=== PATIENT | female | born 2000 | race Caucasian/White ===

== ENCOUNTER 2023-11-04 03:04 | Emergency (ER) | payer MEDICAID ==
[~2023-11-04] VITALS: Ht 154.9 cm; Wt 59.0 kg
[2023-11-04 03:23] VITALS: O2SAT 98
[2023-11-04] MEDS ORDERED: TOPUD PO (05:41)
[2023-11-04] MEDS: ACETAMINOPHEN 325MG TABLET PO ONE (05:45)
[2023-11-04 06:14] VITALS: BP 116/81; PULSE 82; RESP 16; TEMP 98.1
[2023-11-05] MEDS ORDERED: AMOX1TAB16 MT (02:10)
== END 2023-11-04 06:15 | disposition home or self-care (01) ==
LOC: ER 03:04
DX: S91.209A Unspecified open wound of unspecified toe(s) with damage to nail, initial encounter (principal); W22.8XXA Striking against or struck by other objects, initial encounter; Y93.89 Activity, other specified; Y92.89 Other specified places as the place of occurrence of the external cause; Y99.8 Other external cause status
CPT/HCPCS: 73620; 99283

== ENCOUNTER 2023-11-05 01:04 | Emergency (ER) | payer MEDICAID ==
[~2023-11-05] VITALS: Ht 154.9 cm; Wt 59.0 kg
[~2023-11-05 01:04] MED LIST: TOPUD PO
[2023-11-05 01:18] VITALS: O2SAT 98
[2023-11-05] MEDS ORDERED: AMOX1TAB16 MT (02:10)
[2023-11-05 02:48] VITALS: BP 126/66; PULSE 70; RESP 16; TEMP 98.7
== END 2023-11-05 02:48 | disposition home or self-care (01) ==
LOC: ER 01:04
DX: S90.212A Contusion of left great toe with damage to nail, initial encounter (principal); X58.XXXA Exposure to other specified factors, initial encounter; Y93.89 Activity, other specified; Y92.89 Other specified places as the place of occurrence of the external cause; Y99.8 Other external cause status
CPT/HCPCS: 99283